=== PATIENT | female | born 1985 | race Caucasian/White ===

== ENCOUNTER 2016-09-25 10:37 | Emergency (ER) | payer OTHER ==
[~2016-09-25 10:37] MED LIST: ALPRAZOLAM0.5 MG PO
[2016-09-25 12:09] LABS: HEMOGLOBIN 14.1 gm/dl (12.3-15.3); RED BLOOD COUNT 4.47 M/UL (4.00-5.10); WHITE BLOOD COUNT 13.1 K/UL (4.5-11.0)
[2016-09-25 12:26] LABS: BUN/CREATININE RATIO 14 (0-10)
[2016-12-31] MEDS ORDERED: TOPAMAX100 MG PO (07:49)
[2016-12-31] MEDS ORDERED: WELLBUTRIN SR100 MG PO (07:50)
[2016-12-31] MEDS ORDERED: FOLIC ACID1 MG PO (07:50)
[2016-12-31] MEDS ORDERED: SUMATRIPTAN SU100 MG PO (07:51)
[2016-12-31] MEDS ORDERED: NEURONTIN 300300 MG PO (07:52)
[2016-12-31] MEDS ORDERED: IMITREX6 MG/0.51 SQ (07:53)
[2016-12-31] MEDS ORDERED: ADDERALL 10 MG10 MG PO (07:53)
[2016-12-31] MEDS ORDERED: FIORICET TAB1 EA PO (07:54)
[2016-12-31] MEDS ORDERED: NORCO 5-325 TA1 EACH PO (10:28)
[2016-12-31] MEDS ORDERED: IBUPROFEN600 MG PO (10:29)
== END 2016-09-25 14:03 | disposition home or self-care (01) ==
LOC: ER1 10:37
PROVIDERS: Physician Assistant
DX: G43.909 Migraine, unspecified, not intractable, without status migrainosus (principal); F17.210 Nicotine dependence, cigarettes, uncomplicated; Z88.1 Allergy status to other antibiotic agents; Z79.899 Other long term (current) drug therapy; Z90.49 Acquired absence of other specified parts of digestive tract
CPT/HCPCS: 36415; 80048; 85025; 96361; 96374; 96375; 99284; J1200; J1885; J2270; J2405; J2765; J7030

== ENCOUNTER 2020-06-27 18:58 | Emergency (ER) | payer OTHER ==
[~2020-06-27 18:58] MED LIST changes: +ADDERALL 10 MG10 MG PO; +BACTRIM DS TAB1 EACH PO; +BACTROBAN OINT22 GM EXT; +FIORICET TAB1 EA PO; +FOLIC ACID1 MG PO; +IBUPROFEN600 MG PO; +IMITREX6 MG/0.51 SQ; +NAPROSYN500 MG PO; +NEURONTIN 300300 MG PO; +NORCO 5-325 TA1 EACH PO; +SUMATRIPTAN SU100 MG PO; +TOPAMAX100 MG PO; +WELLBUTRIN SR100 MG PO
[2020-06-27 21:00] LABS: HEMOGLOBIN 13.9 gm/dl (12.3-15.3); RED BLOOD COUNT 4.34 M/UL (4.00-5.10); WHITE BLOOD COUNT 9.2 K/UL (4.5-11.0)
[2020-06-27 21:38] LABS: BUN/CREATININE RATIO 13 (0-10)
[2020-06-27] MEDS ORDERED: COLACE 100MG C100 MG PO (23:11)
[2020-06-27] MEDS ORDERED: ZOFRAN 4 MG TAB4 MG PO (23:11)
[2020-06-27] MEDS ORDERED: BENTYL 20MG TAB20 MG PO (23:11)
== END 2020-06-28 00:20 | disposition home or self-care (01) ==
LOC: ER1 18:58
PROVIDERS: Emergency Medicine
DX: R10.9 Unspecified abdominal pain (principal); R51.9 Headache, unspecified; Z87.442 Personal history of urinary calculi; Z96.0 Presence of urogenital implants
CPT/HCPCS: 80053; 81001; 84703; 85025; 96374; 96375; 99284; J2270; J2405

== ENCOUNTER 2021-10-16 07:39 | Emergency (ER) | payer OTHER ==
[~2021-10-16 07:39] MED LIST changes: +BENTYL 20MG TAB20 MG PO; +COLACE 100MG C100 MG PO; +ZOFRAN 4 MG TAB4 MG PO
[2021-10-16] MEDS ORDERED: CLEOCIN HCL300 MG PO (08:31)
== END 2021-10-16 08:43 | disposition home or self-care (01) ==
LOC: ER1 07:39
DX: K02.9 Dental caries, unspecified (principal); Z88.1 Allergy status to other antibiotic agents
CPT/HCPCS: 99282